=== PATIENT | male | born 1965 | race Caucasian/White ===

== ENCOUNTER → 2017-07-10 | Outpatient (CLI) | payer OTHER ==
[~2017-07-10] MED LIST: ASA-EC81 MG; ATORVASTATIN CA80 MG; CARVEDILOL6.25 MG; DIOVAN40 MG; JANUMET 50-1,1 UDTAB; JARDIANCE25 MG; PERCOCET 5/3251 TAB; TRULICITY0.75 MG/0.; XANAX XR2 MG
== END | disposition home or self-care (01) ==
LOC: PPHC 14:09
DX: L03.011 Cellulitis of right finger (principal)